=== PATIENT | female | born 1930 | race Caucasian/White ===

== ENCOUNTER 2016-08-08 12:18 | Inpatient (IN) | payer MEDICARE, BC ==
[2016-08-07 18:03] LABS: T PROTEIN (ELECT)(NOT OR 6.9 G/DL (6.0-8.5)
[2016-08-07 23:56] LABS: A/G RATIO 1.3 (0.7-1.9); ALBUMIN 3.9 G/DL (3.5-5.0); ALKALINE PHOSPHATASE 74 U/L (45-117); CALCIUM, SERUM 9.7 MG/DL (8.5-10.4); CHLORIDE, SERUM 102 MMOL/L (96-112); CO2 (CARBON DIOXIDE) 25 MMOL/L (24-34); CREATININE 0.95 MG/DL (0.55-1.02); GFR AFRICAN AMERICAN 64 ML/MIN (>=60); GFR NON AFRICAN AMERICAN 55 ML/MIN (>=60); POTASSIUM, SERUM 4.4 MMOL/L (3.5-5.3); SGOT(AST) 16 U/L (5-40); SGPT(ALT) 17 U/L (5-65); SODIUM, SERUM 139 MMOL/L (135-148); TOTAL PROTEIN 6.9 G/DL (6.0-8.5)
--- NOTE | ~2016-08-08 | IDS ---
Interim Discharge Summary [facility] [address] [place]. [address] NAME: ALFRED BECERRA : 32 STATUS : ADM IN PAT#: [id number] AGE: 86 ADM/REG DATE : 08/08/16 MR#: [id number] REPORT SERV DATE: 08/19/16 DICTATED BY: IRIS GAITAN DATE: 08/19/16 REPORT STATUS : Draft TRANSCRIBED BY: MODL DATE: 08/19/16 ADMISSION DATE: 08/08/2016 DISCHARGE DATE: INTERIM DIAGNOSES: 1. Shingles. 2. Status post acute encephalopathy, unclear etiology. 3. History of dementia. 4. Bullous pemphigoid. 5. History of DVT. 6. Diarrhea. DIAGNOSTIC EXAM: CAT scan of the brain showing no acute intracranial abnormality identified at this time. Stable moderate cortical volume loss and findings compatible with stable moderate chronic deep white matter ischemic change. Stable right sphenoid sinus disease. HOSPITAL COURSE: Please refer to the H and P done by Dr. Simpson, dated on 08/08/2016 and the interim discharge summary done by nurse practitioner, Karla Dong, on 08/13/2016. Since I took care of this patient, the patient was being evaluated for an acute encephalopathy and a CAT scan was done, which shows the above findings. However, when I talked with ID and when I saw the patient on my 1st day seeing the patient, the patient's acute encephalopathy is already much better. I discussed it with Dr. Penn who is on the case and he is not quite sure what caused the transient encephalopathy. The patient was restarted on a lower dose of acyclovir, continued to tolerate it and now is on p.o. Valtrex, the plan is to give it for four more days to complete the course. Meanwhile, she has been having this on and off diarrhea and the was saying that he believes it is because of the milk content in Ensure. We got Nutrition to give their recommendation, they said that the Ensure products usually are fine even though it contains milk for people who are lactose intolerant, but we even switched to Ensure Clear, the has not been giving it because he believes that when he got the Ensure, the patient started having diarrhea, so we stopped that, and the patient diarrhea stops but then it restarted. We checked for C difficile and that was negative. The patient was given Imodium and that seems to help her out. Meanwhile, she is not eating well, and I talked with the and we are trying to see if she can go back to the protein shakes as I personally do not believe that the Ensure is the one that is causing this diarrhea. The patient is recommended to go to rehab and she is being evaluated by [facility] [place]; however, they are not willing to take the patient if there are still active lesions. As of today, she still has weeping lesion in some of them and some of them have crusted already, but they would want the patient to have all the lesions crusted before they can accept the patient, so the patient is remaining in our facility with contact precautions. We are going to continue the Valtrex. We are going to be giving her some protein shakes. Partner of mine will be following up the patient starting Saturday. JOSE ALBERTO/DERRICK Interim Discharge Summary [address] [address] NAME: ALFRED BECERRA : 32 STATUS : ADM IN PAT#: [id number] AGE: 86 ADM/REG DATE : 08/08/16 MR#: [id number] REPORT SERV DATE: 08/19/16 DICTATED BY: IRIS GAITAN DATE: 08/19/16 REPORT STATUS : Draft TRANSCRIBED BY: DERRICK DATE: 08/19/16 Iris Gaitan M.D. / [id number] CC: Brian Amezcua M.D.
--- NOTE | ~2016-08-08 | HP ---
History And Physical [place] [id number] [address] NAME: ALFRED BECERRA : 32 STATUS : ADM IN PAT#: [id number] AGE: 86 ADM/REG DATE : 08/08/16 MR#: [id number] REPORT SERV DATE: 08/08/16 DICTATED BY: ADELINA DUGAN DATE: 08/08/16 REPORT STATUS : Draft TRANSCRIBED BY: MODL DATE: 08/08/16 DATE OF ADMISSION: 08/08/2016 ADDENDUM: I have talked personally with Dr. Elmore, doctor who has been evaluating through his nurse practitioner, Adelaida Leonardo. 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 However, upon review of the records by Dr. Elmore, the biopsy has been negative. His recommendation has been to discontinue her immunosuppressive agents due to concern of possible disseminating herpes infection in an immunosuppressive person. We are going to place the patient on IV acyclovir, hold her immunosuppressive agent, and we are going to panculture as well as get an Infectious Disease consult. CF/DERRICK Adelina Dugan M.D. / [id number] CC: MD Sari Parkinson II, M.D.
--- NOTE | ~2016-08-08 | DS ---
Discharge Summary [facility] [address] [place]. [address] NAME: ALFRED BECERRA : 32 STATUS : DIS IN PAT#: [id number] AGE: 86 ADM/REG DATE : 08/08/16 MR#: [id number] REPORT SERV DATE: 08/24/16 DICTATED BY: DATE: REPORT STATUS : Draft TRANSCRIBED BY: MODL DATE: 08/23/16 ADMISSION DATE: 08/08/2016 DISCHARGE DATE: 08/23/2016 DISCHARGE DIAGNOSES: 1. Shingles in immunocompromised patient. 2. Acute encephalopathy. 3. History of dementia. 4. History of deep venous thrombosis with chronic anticoagulation. 5. Diarrhea. 6. Osteoarthritis. 7. Anorexia and decreased appetite. 8. Osteoporosis with history of multiple kyphoplasties. CONSULTATIONS: Volodymyr Penn M.D. with Infectious Diseases, and Wound Care. PROCEDURES AND IMAGING: On 08/13/2016, CT of the brain without contrast showed no acute intracranial abnormality at this time. Stable moderate cortical volume loss and findings compatible with stable moderate chronic deep white matter ischemic changes. Stable right sphenoid sinus disease. PERTINENT LABS: The patient has had two negative blood cultures. Viral culture was received with varicella zoster isolated, HSV DNA type 1 and 2 were not detected. HOSPITAL COURSE: Please refer to Dr. Adelina Simpson's H and P dated 08/08/2016 for complete details regarding the patient's admission. In brief, the patient was admitted by Dr. Simpson for a maculopapular rash with question for herpes zoster, dehydration, dementia, history of deep vein thrombosis, chronic immunosuppression. Please see interim discharge summaries dictated on 08/14/2016, Karla Dong advanced practice nurse, and interim discharge summary by Dr. Blayne Sanabria on 08/19/2016. I assumed care of this patient on 08/22/2016. The patient has had episodes of acute encephalopathy during her hospital course. The patient seems to be intolerant of p.o. supplements such as Ensure due to lactose intolerance. This has been giving her diarrhea. The patient has not had any for several days and a re-trial with one dose of Ensure yesterday caused resultant diarrhea which has been corrected with Imodium. The patient is eating very poorly with one to two bites per meal. We have been encouraging fluids, but even with aggressive offering of fluids the patient is only drinking 5-600 mL daily. The patient has been checked for C. diff, and that has been negative. The patient did attempt to crawl out of bed on the evening of 08/21/2016 and scraped the scabs of her zoster on her back and now it is considered an abrasion and Wound Care was consulted and orders were received for dressing changes to also help with shear from the bed sheets. This has also assisted greatly in the patient's comfort level. The patient continues to have scabs without itching underneath her left breast. This has been well controlled with receiving p.o. tramadol. The patient has history of being on methotrexate and prednisone for bullous pemphigoid. This has been stopped due to her shingles. The patient will need to be on Valtrex prophylactically for sometime. The patient will be stopping her current Valtrex treatment in three days, and continuing prophylactic dosing upon discharge. The Discharge Summary [place] [address] [facility] [place]. [address] NAME: ALFRED BECERRA TRUE : 32 STATUS : DIS IN PAT#: [id number] AGE: 86 ADM/REG DATE : 08/08/16 MR#: [id number] REPORT SERV DATE: 08/24/16 DICTATED BY: DATE: REPORT STATUS : Draft TRANSCRIBED BY: MODL DATE: 08/23/16 patient is on Xarelto for her history of DVT. The patient has assumed her baseline of encephalopathy and dementia. She is alert and aware to and self. We are trialing Megace to see if this will increase her appetite. The patient is to be taken off isolation per permission of Dr. Penn and he is willing for the patient to be transferred to rehab today. PHYSICAL EXAMINATION: GENERAL: The patient is an 86-year-old, female. VITAL SIGNS: Blood pressure is 142/68, temperature is 97, heart rate is 82, O2 saturation is 93% on room air, and respirations are 16. NEURO: The patient is alert and oriented to self and spouse. Pleasant and cooperative. HEENT: Head is atraumatic and normocephalic. Pupils are equal, round, and reactive to light. Sclerae are clear and nonicteric. NECK: Supple. Trachea is midline. No obvious thyromegaly or lymphadenopathy. Neck veins are flat. CARDIAC: The patient is in a regular rhythm with no obvious murmurs, rubs, or gallops. LUNGS: Lungs are clear to auscultation with normal respiratory effort. Overall diminished throughout. GI: Abdomen is soft and nontender. Active bowel sounds in all four quadrants. No palpable organomegaly. EXTREMITIES: No significant edema, clubbing, or cyanosis. Dorsalis pedis and posterior tibial pulses are palpable bilaterally. MUSCULOSKELETAL: Moves all extremities x4. She is ambulatory with assistance. SKIN: The patient has crusts underneath her left breast which extend over to midline in her left back. Mepilex is over the area on her back and under her left arm. This dressing is clean, dry, and intact. The patient also has redness and groin folds that does not appear to be yeast. The patient is eating poorly approximately one to two bites per meal. She is drinking juice, but is unable to take Ensure or Ensure Clear due to milk intolerance. DISCHARGE DIET: Regular diet. DISCHARGE MEDICATIONS: 1. Vitamin B12 1000 mcg daily. 2. Calcium 600 mg daily. 3. Vitamin D 5000 units daily. 4. Multivitamin without minerals daily. 5. Namenda 10 mg twice daily. 6. Protonix 40 mg daily. 7. Potassium 20 mEq daily. 8. Vitamin B6 50 mg daily. 9. Xarelto 20 mg with supper. 10.Valtrex 1000 mg twice daily x3 days, to stop on 08/27/2016, and then resume 500 mg p.o. b.i.d. for herpes zoster. 11.Tylenol 650 mg p.o. or p.r. q.4 hours p.r.n., temp or mild pain. 12.Colace 100 mg twice daily p.r.n. constipation. Discharge Summary [address] [address] NAME: ALFRED BECERRA TRUE : 32 STATUS : DIS IN PAT#: [id number] AGE: 86 ADM/REG DATE : 08/08/16 MR#: [id number] REPORT SERV DATE: 08/24/16 DICTATED BY: DATE: REPORT STATUS : Draft TRANSCRIBED BY: DERRICK DATE: 08/23/16 13.Loperamide 2 mg p.o. q.3 hours p.r.n. diarrhea. 14.Zofran 4 mg p.o. or sublingual q.4 hours p.r.n. nausea. 15.Senna two tablets p.o. p.r.n. constipation. 16.Folic acid 400 mcg at bedtime. 17.PreserVision AREDS one capsule twice daily. 18.Tramadol 50-100 mg p.o. q.6 hours p.r.n. pain. ALLERGIES: THE PATIENT IS ALLERGIC TO FORTEO WHICH RESULTS IN BLISTERS ON HER LEG AND BACK. DISCHARGE INSTRUCTIONS: The patient is to follow up with Dr. Sari Naqvi in 10 to 14 days. Should the patient have any exacerbation of her symptoms she is to follow up with Dr. Naqvi or to present to the ER. Approximately 45 minutes have been spent coordinating discharge care of this patient including [id number] encounter and summarization of the discharge. DICTATED BY: Teresa Escobedo NP SLC/MODL Teresa Escobedo NP / [id number] CC: Alejandro Mooney Jr, MD Arlene Donowitz, M.D. Hal Hill, M.D.
--- NOTE | ~2016-08-08 | IDS ---
Interim Discharge Summary [facility] [address] [place]. [address] NAME: ALFRED BECERRA : 32 STATUS : ADM IN PAT#: [id number] AGE: 86 ADM/REG DATE : 08/08/16 MR#: [id number] REPORT SERV DATE: 08/14/16 DICTATED BY: DATE: REPORT STATUS : Draft TRANSCRIBED BY: MODL DATE: 08/13/16 ADMISSION DATE: 08/08/2016 DISCHARGE DATE: Date of discharge hopefully within next 48 hours. Interim summary covers dates of service between 08/08/2016 and 08/13/2016. CONSULTATIONS: Dr. Volodymyr Penn, Infectious Disease, 08/09/2016. INTERIM DIAGNOSES: 1. Acute encephalopathy. 2. Varicella zoster/shingles in an immunocompromised patient. 3. Leukocytosis, mild. 4. Hypokalemia. 5. History of bullous pemphigoid. 6. Dementia/poor oral intake. 7. Mild hyperglycemia. 8. History of DVT greater than 1 year ago. HOSPITAL COURSE: Please refer to history and physical dated 08/08/[address] Adelina Simpson for complete details pertaining to patient's initial presentation upon admission and health history. Also refer to consultation dated 08/09/[address] Hal Penn, Infectious Disease. 1. Varicella zoster/shingles. Per 's report, the patient presented with outbreak of rash to left sided abdomen last Saturday. The patient has a history of bullous pemphigoid, for which she has been under a long-term immunosuppressive therapy with methotrexate and steroids. The patient presented to Dr. Elmore's office for evaluation last Saturday. Biopsies were obtained at that time. The patient returned home awaiting biopsy results; however, she became so weak over the next several days, she presented to the emergency department on August 08 with complaints of significant weakness, near syncopal event, and ongoing rash to abdomen. Biopsy results obtained from Dr. Elmore's office was available on Orgenesis and was positive for the herpes virus. Infectious Disease was consulted for management of the shingles in an immunosuppressed patient. The patient was placed on IV acyclovir and was transitioned to p.o. Valtrex on August 11. The patient suffered acute onset of encephalopathy today and was having difficulty swallowing p.o. medication. ID was contacted and patient was placed back on IV acyclovir 10 mg/kg every 10 hours. ID to follow along. Lesions to left abdomen, flank, and back are stable. Lesions to right lower abdomen have not progressed. 1. Acute encephalopathy, etiology remains unclear; however, differential diagnosis included side effects of antiviral medication versus zoster MANAGER IMAGE involvement. Repeat noncontrast CT of the brain was obtained this afternoon. No acute intracranial abnormality was identified. Throughout this evening, patient is slowly returning to baseline mental status. The patient was temporarily made n.p.o. until nurse could perform bedside swallow screen to ensure patient can safely take p.o. medication. Interim Discharge Summary [place] [id number] [facility] [place]. [address] NAME: ALFRED BECERRA : 32 STATUS : ADM IN PAT#: [id number] AGE: 86 ADM/REG DATE : 08/08/16 MR#: [id number] REPORT SERV DATE: 08/14/16 DICTATED BY: DATE: REPORT STATUS : Draft TRANSCRIBED BY: MODL DATE: 08/13/16 Result is pending. 2. Leukocytosis, mild. The patient's white blood cell count was elevated and reported to be 11.6 today. ID is aware. No additional signs or symptoms of infection at this time. Likely related to significant fecal stasis. The patient has remained afebrile. 3. Constipation. The patient has a history of chronic constipation at home. KUB obtained on August 12 indicated large amount of stool in the ascending colon. The patient was placed on aggressive bowel regimen to include enemas and Senokot. The patient has had several large volume bowel movements. 4. History of bullous pemphigoid. The patient has been treated greater than 1 year with methotrexate and steroids. This medication is on hold secondary to outbreak of shingles. 5. Dementia/poor oral intake. The patient has dementia of unknown type, normally is pleasantly confused, oriented to self and family. No behavioral issues. If patient is deemed safe swallow, continue regular diet with Ensure three times daily. 6. Hyperglycemia, mild. The patient has no history of diabetes, A1c is 6.2, blood glucoses range 105 to 133 over the past 24 hours with one episode of blood glucose 200. Monitor and initiate sliding scale insulin if indicated. 7. History of DVT. The patient is on chronic Xarelto. DVT occurred greater than one year ago. If the patient continues to have difficulty swallowing, discontinue Xarelto and start Lovenox at DVT prophylaxis dose. DISPOSITION: The patient will be discharged to [facility] when medically stable and bed is available. HERBIE/DERRICK JOVITA Sagastume / [id number]
--- NOTE | ~2016-08-08 | CN ---
Consultation Report [facility] [address] [place]. [address] NAME: ALFRED BECERRA : 32 STATUS : ADM IN PAT#: [id number] AGE: 86 ADM/REG DATE : 08/08/16 MR#: [id number] REPORT SERV DATE: 08/09/16 DICTATED BY: WILFRED PENN DATE: 08/09/16 REPORT STATUS : Draft TRANSCRIBED BY: MODL DATE: 08/09/16 INFECTIOUS DISEASE CONSULTATION DATE OF CONSULTATION: 08/09/2016 REASON FOR CONSULTATION: Zoster. HISTORY OF PRESENT ILLNESS: This is a pleasant 86-year-old female with a past medical history notable for dementia, osteoarthritis, osteoporosis, and DVT. The history is obtained from the patient which is somewhat limited in the chart. According to the information, Dr. Simpson got that she has been on immunosuppressive therapy with methotrexate and prednisone for some sort of skin condition. I am not sure how long she has been on these drugs. However, she developed an apparently new rash on her left back about six days ago, which spread to involve a large area of the back and left upper chest and abdomen. She actually denies any pain with this. The patient was seen in Dr. Elmore's office on 08/07/2016 and a biopsy was done. This returned consistent with herpes dermatitis. Yesterday, she became quite weak and had trouble walking, and became almost syncopal, and had a poor appetite, and for all these reasons, her brought her to the emergency department and she was admitted, and started on IV acyclovir. This morning, she says she feels better. She denies any headache or cough. The patient also denies any nausea or vomiting. PAST MEDICAL HISTORY: As outlined above. In addition, she has had kyphoplasties for her compression fractures from her osteoporosis and she underwent ORIF of a right distal radius and ulnar fracture earlier this year. ALLERGIES: FORTEO. OUTPATIENT MEDICATIONS: Included prednisone 10 mg daily and methotrexate 10 mg weekly along with [place], vitamin D, vitamin B12, folic acid, Namenda, potassium, Xarelto. SOCIAL HISTORY: The patient is , nonsmoker, nondrinker. FAMILY HISTORY: Noncontributory, but significant for heart disease. REVIEW OF SYSTEMS: As outlined above. In addition, she denies any oral ulcers, difficulty swallowing or pain with swallowing, genitourinary symptoms or specific joint complaints. No easy bleeding or bruising. The rest of the 10-point review of systems is also negative except as noted above. PHYSICAL EXAMINATION: VITAL SIGNS: This is a 57.6 kg female who has been afebrile since admission. Blood pressure 139/65, pulse is 60, oxygen saturation 96% on 2 L, respiratory rate 16. Consultation Report [place] [address] [place]. [address] NAME: ALFRED BECERRA : 32 STATUS : ADM IN PAT#: [id number] AGE: 86 ADM/REG DATE : 08/08/16 MR#: [id number] REPORT SERV DATE: 08/09/16 DICTATED BY: WILFRED PENN DATE: 08/09/16 REPORT STATUS : Draft TRANSCRIBED BY: DERRICK DATE: 08/09/16 GENERAL: She is lying in bed, in no acute distress. Follows commands. She knows her name, but is not oriented to the year or the place. HEAD AND NECK: Extraocular movements intact. Conjunctivae normal. The oral cavity is clear. I do not see any vesicles or other lesions in the mouth. Neck is supple. LUNGS: Clear to auscultation. CARDIAC: Regular rate and rhythm. Normal S1, S2 without murmur, gallop, or rub. ABDOMEN: Soft and nontender. Decreased bowel sounds. No masses. EXTREMITIES: Show trace edema in her lower legs. SKIN: The patient has a dermatomal rash involving the left thorax extending anteriorly beneath the breast onto the left lower chest and upper abdomen. This has the appearance of confluent vesicles and just diffuse erythema and discoloration. On the anterior trunk, there are more specific lesions mostly of an erythematous papular nature, some have almost a vesiculopapular appearance. On the right abdomen, there are more discrete lesions and more of a cluster and these have a vesiculopapular, but mainly papular appearance. There is no tenderness to palpation. There is some ecchymotic like changes also within the large area of involvement. The rest of the skin exam shows no other lesions elsewhere. LABORATORY STUDIES: Creatinine today is 0.52, albumin 2.2. Liver function tests normal. White blood cell count 7.5, hemoglobin 12.5, platelets 114. Urinalysis is negative. Pathology report is noted. Chest x-ray shows minimal bibasilar atelectasis with probable trace bilateral pleural fluid. IMPRESSION: Zoster in an immunocompromised patient who has been on methotrexate and steroids. I believe more than one thoracic dermatome is involved on the left and she also does have some lesions on the right abdomen, but otherwise there is no evidence of widespread, cutaneous dissemination, and clinically no evidence of visceral involvement such as pneumonia or meningoencephalitis or hepatitis. PLAN: 1. We will continue the IV acyclovir for now, but anticipate transition to oral Valtrex soon. 2. Hold immunosuppressive therapy and attempt to get old records to better understand why she was placed on these drugs. 3. Follow her creatinine on acyclovir and we will repeat that in the morning and try to make sure that she is adequately hydrated. ROLAND/DERRICK Wilfred Penn M.D. / [id number] Consultation Report [address] [address] NAME: ALFRED BECERRA : 32 STATUS : ADM IN PAT#: [id number] AGE: 86 ADM/REG DATE : 08/08/16 MR#: [id number] REPORT SERV DATE: 08/09/16 DICTATED BY: WILFRED PENN DATE: 08/09/16 REPORT STATUS : Draft TRANSCRIBED BY: DERRICK DATE: 08/09/16 CC: MD Sari Parkinson II, M.D. Charles Susong, M.D.
--- NOTE | ~2016-08-08 | HP ---
History And Physical [id number] [facility] [place]. [address] NAME: ALFRED BECERRA : 34 STATUS : ADM IN PAT#: [id number] AGE: 86 ADM/REG DATE : 08/08/16 MR#: [id number] REPORT SERV DATE: 08/08/16 DICTATED BY: ADELINA DUGAN DATE: 08/08/16 REPORT STATUS : Draft TRANSCRIBED BY: MODL DATE: 08/08/16 DATE OF ADMISSION: 08/08/2016 CHIEF COMPLAINT: Weakness, near-syncope, and rash. HISTORY OF PRESENT ILLNESS: This is a very pleasant 86 years female, which has a history of fairly advanced dementia, also history of unclear dermatologic condition in the past for which she has been treated with methotrexate and prednisone by Dermatology, according to the which gives more of the history, he is unsure what medical condition she has had, also history of degenerative joint disease, osteoarthritis, that has been presenting today to [facility] with severe weakness and near syncope. The patient has developed a macular rash on her back on Saturday that went actually all around her back from the left to the right accompanied with some pain, and she also started to become progressively weak. She made an appointment yesterday with Dr. Shah, which was out of town. She went yesterday to Dr. Elmore's office. She has been seen by a nurse practitioner, Lyia Kebede who did some biopsies. She has not been seen by Dr. Elmore but after discussion with Dr. Elmore, question about possible zoster. She has not been treated through she was probably supposed to get back with Dermatology but currently she has not got any results back from Dr. Elmore office. However, this morning, she was so weak, barely walking and near syncopal. She never passed out but she was extremely weak also for couple of days. Her appetite has been reduced significantly and as a result, brought her to hospital. She denies any headaches, chest pain, or shortness of breath. No PND. No orthopnea. She does have some back pain at the site of the rash. She did not have any real syncopal episodes. No nausea or vomiting. No abdominal pain. No diarrhea or constipation. No increased urinary frequency or urgency. No hematemesis or melena. No hematochezia. No other complaints. She has been evaluated in the emergency room, and Hospitalist Service has been asked for admission, further evaluation, and treatment. PAST MEDICAL HISTORY: History of DVT, history of dementia, history of immunosuppression for unclear dermatology condition, also osteoarthritis and osteoporosis. PAST SURGICAL HISTORY: Includes prior kyphoplasties for osteoporosis with compression fractures and also fixing of comminuted right distal radius and ulnar fractures in 2017. SOCIAL HISTORY: Denies tobacco, alcohol, or IV drugs. ALLERGIES: SHE IS ALLERGIC TO FORTEO. FAMILY HISTORY: Significant for heart disease. MEDICATIONS: At home include calcium and vitamin D, cholecalciferol, vitamin B12, folic acid, Namenda, methotrexate, potassium gluconate, prednisone, Xarelto, [id number] rash cream, and multivitamins. REVIEW OF SYSTEMS: A 14-point review of systems has been obtained and pertinent positive has been listed into History And Physical [address] [address] NAME: ALFRED BECERRA : 34 STATUS : ADM IN [facility]#: [id number] AGE: 86 ADM/REG DATE : 08/08/16 MR#: [id number] REPORT SERV DATE: 08/08/16 DICTATED BY: ADELINA DUGAN DATE: 08/08/16 REPORT STATUS : Draft TRANSCRIBED BY: MODL DATE: 08/08/16 the history of present illness. Otherwise, negative except those underlying above. OBJECTIVE: VITAL SIGNS: Currently, the patient is afebrile. Blood pressure 154/68, heart rate 91, respiratory rate 16, and saturating 97% on room air. GENERAL: She is a very pleasant, dry-appearing female, in no acute distress. She is alert and oriented x1 nonfocal. She is generalized weak, but moves all extremities. HEENT: Shows pupils equal, round, reactive to light. Extraocular movements intact. NECK: No JVD. No lymphadenopathy. No thyromegaly appreciated. CHEST: Eval shows bilateral air entry. Clear anteroposterior. No wheezes, crackles, or rhonchi appreciated. CARDIOVASCULAR: She has regular rate and rhythm. S1, S2 positive. No S3, no S4. No murmurs, rubs, or gallops appreciated. ABDOMEN: Soft, positive bowel sounds. Nontender. No guarding. No rebound. EXTREMITIES: No clubbing, cyanosis, or edema. NEUROLOGIC: She is alert and oriented x1. She is generalized weak, but moves all her extremities. Follow commands appropriately. Cranial nerves are intact. Gait could not be assessed. SKIN: There is some macular rash that is extending from the right upper quadrant way on the back with small lesions occurring on the right upper quadrant as well. LABORATORY DATA: Labs from today include sodium 141, potassium 4.5, chloride 108, CO2 of 26, BUN 23, creatinine 0.73, glucose 152, magnesium 2.2. Her troponin I is less than 0.02. Her white count is 10.7, hemoglobin is 14, hematocrit 41.6, platelets are 156. Her INR is 1.3. Her UA has been negative. Her chest x-ray, portable, performed in the emergency room has been with minimal bibasilar atelectasis and probable trace peripheral edema, and EKG shows normal sinus rhythm. ASSESSMENT AND PLAN: This is a very pleasant [id number] female with weakness and near syncope. 1. Rash, maculopapular rash, questionable herpes zoster. 2. Dehydration. 3. Dementia. 4. History of deep vein thrombosis. 5. Chronic immunosuppression. 6. Osteoarthritis, osteoporosis. The patient is going to be admitted to Hospitalist Service for observation. We are going to provide vigorous IV hydration. We are going to rule her for MS by serial cardiac enzymes, serial EKGs. We are going to order a CT of the brain and 2D echo. We are going to place her empiric on Valtrex and consult Dr. Elmore for further recommendation. Continue her home medications. We are going to provide reasonable pain control. GI and DVT prophylaxis with SCDs. This has been discussed extensively with the patient as well as the patient's family. All the questions have been answered in full. Further workup and recommendation pending above. It is worthwhile to note that the patient is going to be followed by Hospitalist Service. History And Physical [address] [place]. [address] NAME: ALFRED BECERRA TRUE : 34 STATUS : ADM IN [facility]#: [id number] AGE: 86 ADM/REG DATE : 08/08/16 MR#: [id number] REPORT SERV DATE: 08/08/16 DICTATED BY: ADELINA DUGAN DATE: 08/08/16 REPORT STATUS : Draft TRANSCRIBED BY: MODChristina DATE: 08/08/16 CF/MODL Adelina Dugan M.D. / [id number] CC: MD Sari Parkinson II, M.D.
[2016-08-08 00:06] LABS: BUN (BLOOD UREA NITROGEN) 27 MG/DL (6-23); GLUCOSE, SERUM 148 MG/DL (60-99); TOTAL BILIRUBIN 1.2 MG/DL (0-1.2)
[2016-08-08 10:43] LABS: A/G 1.48 RATIO (0.9-2.10); ALB RELATIVE % 59.7 % (60.0-89.0); ALBUMIN (ELECTRO) 4.12 GM/DL (3.2-5.5); ALPHA 1 (ELECTRO) 0.26 GM/DL (0.1-0.4); ALPHA 1 RELAT % (NOT ORD) 3.7 % (1.0-4.0); ALPHA 2 (ELECTRO) 1.01 GM/DL (0.5-1.10); ALPHA 2 RELAT % 14.6 % (4.5-26.0); GAMMA GLOBULIN (SPE) 0.62 G/DL (0.70-1.60)
[~2016-08-08 12:18] MED LIST: CONSTULOSE PO; D 5000 PO; FOLIC ACID800 MCG PO; FORTEO SC; MIRALAXPKT PO; NAMENDA10 MG PO; NORCO1 TA1 PO; OTC POTASSIUM PO; PREDNISONE2.5 MG PO; PRESERVISION A1 EACH PO; TREXALL10 MG PO; XARELTO20 MG PO
[2016-08-08 14:05] LABS: BASOPHILS 0.4 %; BASOPHILS ABSOLUTE 0.04 10/3/uL (0.0-0.16); EOSINOPHILS 0 %; IMMATURE GRANULOCYTES 0.7 %; IMMATURE GRANULOCYTES ABSOLUTE 0.07 10/3/uL (0.0-0.11); LYMPHOCYTES 3.7 %; MEAN CORPUS HGB CONC 33.7 g/dL (32.0-36.0); MEAN CORPUSCULAR HEMOGLOB 31.3 pg (26.0-34.0); MEAN PLATELET VOLUME 8.8 fL (9.2-13.0); MONOCYTES 2.8 %; NEUTROPHILS 92.4 %; RBC DISTRIBUTION WIDTH 16.1 % (12.0-16.0); RED CELL COUNT 4.48 10/6/uL (4.0-5.6)
[2016-08-08 14:06] LABS: HEMATOCRIT 41.6 % (36.0-48.0); MANUAL DIFF NO %; MEAN CORPUSCULAR VOLUME 92.9 fL (80-100); PLATELET COUNT 153 10/3/uL (150-400); WHITE BLOOD CELLS 10.7 10/3/uL (4.5-10.5)
[2016-08-08 14:12] LABS: INTERNATIONAL NORMAL RATI 1.3 UNITS (-); PROTIME (NOT ORD) 16.1 SEC (12.0-14.5)
[2016-08-08 14:22] LABS: CHEST PAIN PROFILE TAT 0 Hrs 22 Mins; CHLORIDE, SERUM 108 MMOL/L (96-112); CO2 (CARBON DIOXIDE) 26 MMOL/L (24-34); CREATININE 0.73 MG/DL (0.55-1.02); GFR AFRICAN AMERICAN 88 ML/MIN (>=60); GFR NON AFRICAN AMERICAN 76 ML/MIN (>=60); GLUCOSE, SERUM 152 MG/DL (60-99); SODIUM, SERUM 141 MMOL/L (135-148); TROPONIN I <0.02 NG/ML (<0.05)
[2016-08-08 14:24] LABS: BUN (BLOOD UREA NITROGEN) 23 MG/DL (6-23); CALCIUM, SERUM 8.7 MG/DL (8.5-10.4); LACTATE 1.4 MMOL/L (0.3-2.4); POTASSIUM, SERUM 4.5 MMOL/L (3.5-5.3)
[2016-08-08 14:33] LABS: ASCORBIC ACID (UR NOT ORDER) 40 (NEG); BILIRUBIN, URINE NEGATIVE (NEG); ER URINALYSIS TAT 0 Hrs 16 Mins; KETONE, URINE TRACE MG/DL (NEG); LEUKOCYTE ESTERASE(NOT OR NEG (NEG); NITRITE (URINE) NEG (NEG); WBC (NOT ORDERED) (RFLEX) < 1 (0-5)
[2016-08-08] MEDS ORDERED: MTX2.5 PO (15:43)
[2016-08-08] MEDS ORDERED: P10 PO ×2 (15:46→15:51)
[2016-08-08] MEDS ORDERED: [UNRECOGNIZED DRUG - OTHER] TOP (15:48)
[2016-08-08] MEDS ORDERED: POTASSIUM GLUCO99 MG PO (15:49)
[2016-08-08] MEDS ORDERED: D 5000 PO (15:49)
[2016-08-08] MEDS ORDERED: OS500+D PO (15:50)
[2016-08-08] MEDS ORDERED: FOLIC ACID400 MC1 PO (15:50)
[2016-08-08] MEDS ORDERED: CYANO1000T PO (15:50)
[2016-08-08] MEDS ORDERED: PRESERVISION A1 EAC1 PO (15:50)
[2016-08-08] MEDS ORDERED: NAMENDA10 MG PO (15:51)
[2016-08-08] MEDS ORDERED: XARELTO20 MG PO (15:51)
[2016-08-08 18:29] LABS: BASOPHILS 0.2 %; BASOPHILS ABSOLUTE 0.02 10/3/uL (0.0-0.16); EOSINOPHILS 0.3 %; EOSINOPHILS ABSOLUTE 0.03 10/3/uL (0.0-0.53); IMMATURE GRANULOCYTES 0.6 %; IMMATURE GRANULOCYTES ABSOLUTE 0.06 10/3/uL (0.0-0.11); LYMPHOCYTES 3.7 %; LYMPHOCYTES ABSOLUTE 0.36 10/3/uL (0.67-4.30); MEAN CORPUS HGB CONC 32.3 g/dL (32.0-36.0); MEAN CORPUSCULAR HEMOGLOB 31.1 pg (26.0-34.0); MEAN CORPUSCULAR VOLUME 96.5 fL (80-100); MEAN PLATELET VOLUME 9.6 fL (9.2-13.0); MONOCYTES 4.3 %; MONOCYTES ABSOLUTE 0.42 10/3/uL (0.21-1.20); NEUTROPHILS 90.9 %; NEUTROPHILS ABSOLUTE 8.91 10/3/uL (2.02-8.40); RBC DISTRIBUTION WIDTH 16.3 % (12.0-16.0)
[2016-08-08 18:31] LABS: HEMATOCRIT 46.8 % (36.0-48.0); HEMOGLOBIN 15.1 g/dL (12.0-16.0); MANUAL DIFF NO %; PLATELET COUNT 218 10/3/uL (150-400); RED CELL COUNT 4.85 10/6/uL (4.0-5.6); WHITE BLOOD CELLS 9.8 10/3/uL (4.5-10.5)
[2016-08-08 20:27] LABS: FREE T4 1.34 NG/DL (0.76-1.46); PHOSPHORUS, SERUM 2.7 MG/DL (2.5-4.5)
[2016-08-08 20:30] LABS: ULTRASENSITIVE TSH 0.419 MCIU/ML (0.358-3.740)
[2016-08-08 20:58] LABS: B NATRIURETIC PEPTIDE (BNP) 69.6 PG/ML (< 100.0)
[2016-08-08 21:17] LABS: GLYCOHEMOGLOBIN (HbA1c) 6.2 % (4.7-6.1)
[2016-08-08 23:06] LABS: CPK 52 U/L (0-200); TROPONIN I 0.02 NG/ML (<0.05)
[2016-08-09 07:18] LABS: BASOPHILS 0.5 %; BASOPHILS ABSOLUTE 0.04 10/3/uL (0.0-0.16); EOSINOPHILS 0.4 %; EOSINOPHILS ABSOLUTE 0.03 10/3/uL (0.0-0.53); HEMOGLOBIN 12.5 g/dL (12.0-16.0); IMMATURE GRANULOCYTES 0.5 %; IMMATURE GRANULOCYTES ABSOLUTE 0.04 10/3/uL (0.0-0.11); LYMPHOCYTES 9.4 %; LYMPHOCYTES ABSOLUTE 0.71 10/3/uL (0.67-4.30); MEAN CORPUS HGB CONC 32.9 g/dL (32.0-36.0); MEAN CORPUSCULAR HEMOGLOB 30.7 pg (26.0-34.0); MEAN CORPUSCULAR VOLUME 93.4 fL (80-100); MEAN PLATELET VOLUME 8.6 fL (9.2-13.0); MONOCYTES 3.2 %; MONOCYTES ABSOLUTE 0.24 10/3/uL (0.21-1.20); NEUTROPHILS ABSOLUTE 6.46 10/3/uL (2.02-8.40); PLATELET COUNT 114 10/3/uL (150-400); RBC DISTRIBUTION WIDTH 16.1 % (12.0-16.0); RED CELL COUNT 4.07 10/6/uL (4.0-5.6); WHITE BLOOD CELLS 7.5 10/3/uL (4.5-10.5)
[2016-08-09 07:19] LABS: MANUAL DIFF NO %
[2016-08-09 08:05] LABS: BUN (BLOOD UREA NITROGEN) 20 MG/DL (6-23); CALCIUM, SERUM 8.1 MG/DL (8.5-10.4); CHLORIDE, SERUM 109 MMOL/L (96-112); CO2 (CARBON DIOXIDE) 23 MMOL/L (24-34); CPK 69 U/L (0-200); CREATININE 0.52 MG/DL (0.55-1.02); GFR AFRICAN AMERICAN 102 ML/MIN (>=60); GFR NON AFRICAN AMERICAN 88 ML/MIN (>=60); POTASSIUM, SERUM 3.6 MMOL/L (3.5-5.3); SGOT(AST) 34 U/L (5-40); SGPT(ALT) 21 U/L (5-65); SODIUM, SERUM 138 MMOL/L (135-148); TROPONIN I <0.02 NG/ML (<0.05)
[2016-08-09 08:06] LABS: A/G RATIO 0.8 (0.7-1.9); ALBUMIN 2.2 G/DL (3.5-5.0); ALKALINE PHOSPHATASE 46 U/L (45-117); CK-MB 1.6 NG/ML; GLOBULIN 2.8 G/DL (2.5-4.1); GLUCOSE, SERUM 83 MG/DL (60-99); TOTAL BILIRUBIN 0.6 MG/DL (0-1.2)
[2016-08-09 15:21] LABS: CK-MB 1.7 NG/ML; CPK 60 U/L (0-200); TROPONIN I <0.02 NG/ML (<0.05)
[2016-08-10 11:40] LABS: BUN (BLOOD UREA NITROGEN) 16 MG/DL (6-23); CALCIUM, SERUM 8.2 MG/DL (8.5-10.4); CHLORIDE, SERUM 102 MMOL/L (96-112); CO2 (CARBON DIOXIDE) 27 MMOL/L (24-34); GFR AFRICAN AMERICAN 103 ML/MIN (>=60); GFR NON AFRICAN AMERICAN 89 ML/MIN (>=60); GLUCOSE, SERUM 84 MG/DL (60-99); SODIUM, SERUM 135 MMOL/L (135-148)
[2016-08-11 05:45] LABS: BASOPHILS 0.4 %; BASOPHILS ABSOLUTE 0.03 10/3/uL (0.0-0.16); EOSINOPHILS 1.5 %; EOSINOPHILS ABSOLUTE 0.11 10/3/uL (0.0-0.53); HEMATOCRIT 34.2 % (36.0-48.0); HEMOGLOBIN 11.6 g/dL (12.0-16.0); IMMATURE GRANULOCYTES 0.3 %; IMMATURE GRANULOCYTES ABSOLUTE 0.02 10/3/uL (0.0-0.11); MANUAL DIFF NO %; MEAN CORPUS HGB CONC 33.9 g/dL (32.0-36.0); MEAN CORPUSCULAR HEMOGLOB 30.5 pg (26.0-34.0); MEAN PLATELET VOLUME 8.9 fL (9.2-13.0); MONOCYTES 4.7 %; MONOCYTES ABSOLUTE 0.34 10/3/uL (0.21-1.20); NEUTROPHILS 64.1 %; NEUTROPHILS ABSOLUTE 4.64 10/3/uL (2.02-8.40); PLATELET COUNT 150 10/3/uL (150-400); RBC DISTRIBUTION WIDTH 15.2 % (12.0-16.0); WHITE BLOOD CELLS 7.2 10/3/uL (4.5-10.5)
[2016-08-11 05:55] LABS: BUN (BLOOD UREA NITROGEN) 17 MG/DL (6-23); CALCIUM, SERUM 7.9 MG/DL (8.5-10.4); CHLORIDE, SERUM 99 MMOL/L (96-112); CO2 (CARBON DIOXIDE) 30 MMOL/L (24-34); GFR AFRICAN AMERICAN 103 ML/MIN (>=60); GFR NON AFRICAN AMERICAN 89 ML/MIN (>=60); GLUCOSE, SERUM 79 MG/DL (60-99); SODIUM, SERUM 136 MMOL/L (135-148)
[2016-08-11 05:56] LABS: POTASSIUM, SERUM 2.8 MMOL/L (3.5-5.3)
[2016-08-12 06:31] LABS: BASOPHILS 0.4 %; BASOPHILS ABSOLUTE 0.04 10/3/uL (0.0-0.16); EOSINOPHILS 0.9 %; EOSINOPHILS ABSOLUTE 0.09 10/3/uL (0.0-0.53); HEMOGLOBIN 12.8 g/dL (12.0-16.0); IMMATURE GRANULOCYTES 0.5 %; IMMATURE GRANULOCYTES ABSOLUTE 0.05 10/3/uL (0.0-0.11); LYMPHOCYTES 25.4 %; LYMPHOCYTES ABSOLUTE 2.56 10/3/uL (0.67-4.30); MEAN CORPUS HGB CONC 33.7 g/dL (32.0-36.0); MEAN CORPUSCULAR HEMOGLOB 30.9 pg (26.0-34.0); MEAN CORPUSCULAR VOLUME 91.8 fL (80-100); MEAN PLATELET VOLUME 8.8 fL (9.2-13.0); MONOCYTES 5.6 %; MONOCYTES ABSOLUTE 0.56 10/3/uL (0.21-1.20); NEUTROPHILS 67.2 %; NEUTROPHILS ABSOLUTE 6.79 10/3/uL (2.02-8.40); PLATELET COUNT 188 10/3/uL (150-400); RBC DISTRIBUTION WIDTH 15.3 % (12.0-16.0); RED CELL COUNT 4.14 10/6/uL (4.0-5.6)
[2016-08-12 06:35] LABS: MANUAL DIFF NO %; WHITE BLOOD CELLS 10.1 10/3/uL (4.5-10.5)
[2016-08-12 06:44] LABS: BUN (BLOOD UREA NITROGEN) 18 MG/DL (6-23); CALCIUM, SERUM 8.6 MG/DL (8.5-10.4); CHLORIDE, SERUM 104 MMOL/L (96-112); CO2 (CARBON DIOXIDE) 28 MMOL/L (24-34); CREATININE 0.73 MG/DL (0.55-1.02); GFR AFRICAN AMERICAN 88 ML/MIN (>=60); GFR NON AFRICAN AMERICAN 76 ML/MIN (>=60); GLUCOSE, SERUM 105 MG/DL (60-99); POTASSIUM, SERUM 3.8 MMOL/L (3.5-5.3); SODIUM, SERUM 137 MMOL/L (135-148)
[2016-08-12 13:09] LABS: ALBUMIN 2.1 G/DL (3.5-5.0); ALKALINE PHOSPHATASE 56 U/L (45-117); DIRECT BILIRUBIN < 0.1 MG/DL (0.0-0.4); INDIRECT BILIRUBIN(NOT ORDER) 0.4 MG/DL (0.1-0.9); PHOSPHORUS, SERUM 2.3 MG/DL (2.5-4.5); SGOT(AST) 17 U/L (5-40); SGPT(ALT) 14 U/L (5-65); TOTAL BILIRUBIN 0.5 MG/DL (0-1.2); TOTAL PROTEIN 5.6 G/DL (6.0-8.5)
[2016-08-13 05:34] LABS: BASOPHILS 0.2 %; BASOPHILS ABSOLUTE 0.02 10/3/uL (0.0-0.16); EOSINOPHILS 0.6 %; EOSINOPHILS ABSOLUTE 0.07 10/3/uL (0.0-0.53); HEMATOCRIT 38.1 % (36.0-48.0); IMMATURE GRANULOCYTES 0.5 %; IMMATURE GRANULOCYTES ABSOLUTE 0.06 10/3/uL (0.0-0.11); LYMPHOCYTES ABSOLUTE 1.73 10/3/uL (0.67-4.30); MEAN CORPUS HGB CONC 34.1 g/dL (32.0-36.0); MEAN CORPUSCULAR VOLUME 90.7 fL (80-100); MEAN PLATELET VOLUME 8.8 fL (9.2-13.0); MONOCYTES 4.6 %; MONOCYTES ABSOLUTE 0.53 10/3/uL (0.21-1.20); NEUTROPHILS 79.1 %; NEUTROPHILS ABSOLUTE 9.15 10/3/uL (2.02-8.40); PLATELET COUNT 211 10/3/uL (150-400); RBC DISTRIBUTION WIDTH 15.4 % (12.0-16.0); WHITE BLOOD CELLS 11.6 10/3/uL (4.5-10.5)
[2016-08-13 05:44] LABS: MANUAL DIFF NO %
[2016-08-13 05:57] LABS: BUN (BLOOD UREA NITROGEN) 19 MG/DL (6-23); CALCIUM, SERUM 8.5 MG/DL (8.5-10.4); CHLORIDE, SERUM 102 MMOL/L (96-112); CO2 (CARBON DIOXIDE) 25 MMOL/L (24-34); CREATININE 0.52 MG/DL (0.55-1.02); GFR AFRICAN AMERICAN 102 ML/MIN (>=60); GFR NON AFRICAN AMERICAN 88 ML/MIN (>=60); GLUCOSE, SERUM 107 MG/DL (60-99); POTASSIUM, SERUM 3.3 MMOL/L (3.5-5.3); SODIUM, SERUM 136 MMOL/L (135-148)
[2016-08-13 14:03] LABS: HSV DNA TYPE 1 Not Detected (NOTDET); HSV DNA TYPE 2 Not Detected (NOTDET)
[2016-08-14 04:20] LABS: BASOPHILS 0.1 %; BASOPHILS ABSOLUTE 0.02 10/3/uL (0.0-0.16); EOSINOPHILS 0.4 %; EOSINOPHILS ABSOLUTE 0.06 10/3/uL (0.0-0.53); HEMOGLOBIN 11.5 g/dL (12.0-16.0); IMMATURE GRANULOCYTES 0.5 %; IMMATURE GRANULOCYTES ABSOLUTE 0.07 10/3/uL (0.0-0.11); LYMPHOCYTES 13.7 %; LYMPHOCYTES ABSOLUTE 1.96 10/3/uL (0.67-4.30); MEAN CORPUS HGB CONC 34.4 g/dL (32.0-36.0); MEAN CORPUSCULAR HEMOGLOB 31.1 pg (26.0-34.0); MEAN CORPUSCULAR VOLUME 90.3 fL (80-100); MEAN PLATELET VOLUME 8.7 fL (9.2-13.0); MONOCYTES 5.7 %; MONOCYTES ABSOLUTE 0.82 10/3/uL (0.21-1.20); NEUTROPHILS 79.6 %; NEUTROPHILS ABSOLUTE 11.35 10/3/uL (2.02-8.40); PLATELET COUNT 253 10/3/uL (150-400); RBC DISTRIBUTION WIDTH 15.3 % (12.0-16.0); WHITE BLOOD CELLS 14.3 10/3/uL (4.5-10.5)
[2016-08-14 04:25] LABS: HEMATOCRIT 33.4 % (36.0-48.0); MANUAL DIFF NO %
[2016-08-14 04:32] LABS: ALBUMIN 1.8 G/DL (3.5-5.0); BUN (BLOOD UREA NITROGEN) 20 MG/DL (6-23); CALCIUM, SERUM 8.4 MG/DL (8.5-10.4); CHLORIDE, SERUM 96 MMOL/L (96-112); CO2 (CARBON DIOXIDE) 26 MMOL/L (24-34); CREATININE 0.63 MG/DL (0.55-1.02); GFR AFRICAN AMERICAN 95 ML/MIN (>=60); GFR NON AFRICAN AMERICAN 82 ML/MIN (>=60); GLUCOSE, SERUM 116 MG/DL (60-99); PHOSPHORUS, SERUM 2.7 MG/DL (2.5-4.5); SODIUM, SERUM 131 MMOL/L (135-148)
[2016-08-15 04:33] LABS: BASOPHILS 0.2 %; BASOPHILS ABSOLUTE 0.02 10/3/uL (0.0-0.16); EOSINOPHILS 0.8 %; EOSINOPHILS ABSOLUTE 0.09 10/3/uL (0.0-0.53); HEMATOCRIT 31.6 % (36.0-48.0); HEMOGLOBIN 10.9 g/dL (12.0-16.0); IMMATURE GRANULOCYTES 0.9 %; LYMPHOCYTES 13.4 %; LYMPHOCYTES ABSOLUTE 1.45 10/3/uL (0.67-4.30); MANUAL DIFF NO %; MEAN CORPUS HGB CONC 34.5 g/dL (32.0-36.0); MEAN CORPUSCULAR VOLUME 89.8 fL (80-100); MEAN PLATELET VOLUME 8.6 fL (9.2-13.0); MONOCYTES ABSOLUTE 0.76 10/3/uL (0.21-1.20); NEUTROPHILS 77.7 %; NEUTROPHILS ABSOLUTE 8.42 10/3/uL (2.02-8.40); PLATELET COUNT 305 10/3/uL (150-400); RBC DISTRIBUTION WIDTH 15.4 % (12.0-16.0); RED CELL COUNT 3.52 10/6/uL (4.0-5.6); WHITE BLOOD CELLS 10.8 10/3/uL (4.5-10.5)
[2016-08-15 04:40] LABS: BUN (BLOOD UREA NITROGEN) 17 MG/DL (6-23); CALCIUM, SERUM 8.1 MG/DL (8.5-10.4); CHLORIDE, SERUM 102 MMOL/L (96-112); CO2 (CARBON DIOXIDE) 23 MMOL/L (24-34); CREATININE 0.56 MG/DL (0.55-1.02); GFR AFRICAN AMERICAN 99 ML/MIN (>=60); GFR NON AFRICAN AMERICAN 86 ML/MIN (>=60); SODIUM, SERUM 133 MMOL/L (135-148)
[2016-08-15 04:41] LABS: GLUCOSE, SERUM 88 MG/DL (60-99); POTASSIUM, SERUM 4.2 MMOL/L (3.5-5.3)
[2016-08-16 05:06] LABS: BASOPHILS 0.2 %; BASOPHILS ABSOLUTE 0.02 10/3/uL (0.0-0.16); EOSINOPHILS 0.9 %; EOSINOPHILS ABSOLUTE 0.09 10/3/uL (0.0-0.53); HEMATOCRIT 30.3 % (36.0-48.0); HEMOGLOBIN 10.4 g/dL (12.0-16.0); IMMATURE GRANULOCYTES 0.8 %; IMMATURE GRANULOCYTES ABSOLUTE 0.08 10/3/uL (0.0-0.11); LYMPHOCYTES ABSOLUTE 1.43 10/3/uL (0.67-4.30); MEAN CORPUS HGB CONC 34.3 g/dL (32.0-36.0); MEAN CORPUSCULAR HEMOGLOB 31.2 pg (26.0-34.0); MEAN PLATELET VOLUME 8.2 fL (9.2-13.0); MONOCYTES 8.5 %; MONOCYTES ABSOLUTE 0.87 10/3/uL (0.21-1.20); NEUTROPHILS 75.6 %; PLATELET COUNT 334 10/3/uL (150-400); RBC DISTRIBUTION WIDTH 15.3 % (12.0-16.0); RED CELL COUNT 3.33 10/6/uL (4.0-5.6); WHITE BLOOD CELLS 10.2 10/3/uL (4.5-10.5)
[2016-08-16 05:07] LABS: MANUAL DIFF NO %
[2016-08-16 05:18] LABS: CALCIUM, SERUM 8.4 MG/DL (8.5-10.4); CHLORIDE, SERUM 105 MMOL/L (96-112); CO2 (CARBON DIOXIDE) 25 MMOL/L (24-34); CREATININE 0.57 MG/DL (0.55-1.02); GFR AFRICAN AMERICAN 99 ML/MIN (>=60); GFR NON AFRICAN AMERICAN 85 ML/MIN (>=60); GLUCOSE, SERUM 93 MG/DL (60-99); POTASSIUM, SERUM 4.3 MMOL/L (3.5-5.3); SODIUM, SERUM 135 MMOL/L (135-148)
[2016-08-16 05:19] LABS: BUN (BLOOD UREA NITROGEN) 11 MG/DL (6-23)
[2016-08-17 06:58] LABS: BASOPHILS 0.5 %; BASOPHILS ABSOLUTE 0.04 10/3/uL (0.0-0.16); EOSINOPHILS 1.5 %; EOSINOPHILS ABSOLUTE 0.13 10/3/uL (0.0-0.53); HEMATOCRIT 31.5 % (36.0-48.0); HEMOGLOBIN 10.6 g/dL (12.0-16.0); IMMATURE GRANULOCYTES 0.8 %; IMMATURE GRANULOCYTES ABSOLUTE 0.07 10/3/uL (0.0-0.11); LYMPHOCYTES 16.9 %; LYMPHOCYTES ABSOLUTE 1.46 10/3/uL (0.67-4.30); MEAN CORPUS HGB CONC 33.7 g/dL (32.0-36.0); MEAN CORPUSCULAR HEMOGLOB 30.9 pg (26.0-34.0); MEAN CORPUSCULAR VOLUME 91.8 fL (80-100); MEAN PLATELET VOLUME 8.1 fL (9.2-13.0); MONOCYTES 7.2 %; MONOCYTES ABSOLUTE 0.62 10/3/uL (0.21-1.20); NEUTROPHILS 73.1 %; PLATELET COUNT 379 10/3/uL (150-400); RBC DISTRIBUTION WIDTH 15.6 % (12.0-16.0); RED CELL COUNT 3.43 10/6/uL (4.0-5.6); WHITE BLOOD CELLS 8.6 10/3/uL (4.5-10.5)
[2016-08-17 07:01] LABS: MANUAL DIFF NO %
[2016-09-14] MEDS ORDERED: FOLIC ACID400 MC1 PO (12:54)
[2016-09-14] MEDS ORDERED: NAMENDA10 MG PO (12:55)
[2016-09-14] MEDS ORDERED: PROTONIX PO (12:56)
[2016-09-14] MEDS ORDERED: MTX2.5 PO (12:56)
[2016-09-14] MEDS ORDERED: REM15 PO (12:56)
[2016-09-14] MEDS ORDERED: PRESERVISION A1 EACH PO (12:57)
[2016-09-14] MEDS ORDERED: PREDNISONE2.5 MG PO (12:57)
[2016-09-14] MEDS ORDERED: KDUR20 PO (12:57)
[2016-09-14] MEDS ORDERED: VIT B-SIX 50 MG50 MG PO (12:58)
[2016-09-14] MEDS ORDERED: THERGRANM PO (12:59)
[2016-09-14] MEDS ORDERED: PERI-COLACE1 TAB PO (12:59)
[2016-09-14] MEDS ORDERED: VALTREX5 PO (13:00)
[2016-09-14] MEDS ORDERED: VITAMIN B-121000 MC1 SL (13:00)
[2016-09-14] MEDS ORDERED: XARELTO20 MG PO (13:01)
[2016-09-14] MEDS ORDERED: IMOD PO (13:02)
[2016-09-14] MEDS ORDERED: T PO (13:02)
[2016-09-14] MEDS ORDERED: ZOFRAN ODT4 MG PO (13:03)
[2016-09-14] MEDS ORDERED: ULTRAM50 PO (13:03)
== END 2016-08-23 14:08 | DRG 595 ==
LOC: ER 12:18 → CDU1 16:51 → 7NO 16:59
PROVIDERS: Dermatology; Internal Medicine; Internal Medicine Infectious Disease; Nurse Practitioner; Nurse Practitioner Family
DX: B02.9 Zoster without complications (principal); G92 Toxic encephalopathy; E86.0 Dehydration; L12.0 Bullous pemphigoid; F03.90 Unspecified dementia, unspecified severity, without behavioral disturbance, psychotic disturbance, mood disturbance, and anxiety; R63.0 Anorexia; M19.90 Unspecified osteoarthritis, unspecified site; K59.04 Chronic idiopathic constipation; R73.9 Hyperglycemia, unspecified; R19.7 Diarrhea, unspecified; M80.08XS Age-related osteoporosis with current pathological fracture, vertebra(e), sequela; Z79.899 Other long term (current) drug therapy; Z86.718 Personal history of other venous thrombosis and embolism; Z79.01 Long term (current) use of anticoagulants; Z68.23 Body mass index [BMI] 23.0-23.9, adult; Z88.8 Allergy status to other drugs, medicaments and biological substances; T50.905A Adverse effect of unspecified drugs, medicaments and biological substances, initial encounter
CPT/HCPCS: 70450; 71010; 74000; 80048; 80053; 80069; 80076; 81001; 82550; 82553; 82962; 83036; 83605; 83615; 83735; 83880; 84100; 84132; 84155; 84165; 84439; 84443; 84484; 85025; 85610; 85652; 85730; 86140; 87040; 87252; 87328; 87329; 87493; 87493-59; 87529; 87529-59; 89055; 93005; 97110-GP; 97162-GP; 97530-GP; 99285; A9270-GY; C8929; G8978-CL-GP; G8979-CL-GP; G8980-CL-GP; J0133; Q9957